=== PATIENT | female | born 1955 | race Caucasian/White ===

== ENCOUNTER 2024-10-16 17:17 | Inpatient (IN) | payer MEDICARE, OTHER, SELFPAY ==
[2024-10-16] VITALS (15 sets, daily range): BP systolic 86–138; BP diastolic 63–101; BMI 24.3; BMI 24.5
[2024-10-16 13:07] LABS: Hematocrit 43.0 % (37.0-47.0); Hemoglobin 14.8 g/dL (12.0-16.0); Mean Corp Hgb Conc. 34.4 g/dL (33.0-37.0); Mean Corpuscular Volume 84.0 fL (81.0-99.0); Nucleated Red Blood Cells % 0 %; Platelet Count 325 10^3/uL (130-400); Red Cell Dist. Width 13.2 % (11.5-14.5)
[2024-10-16 13:29] LABS: ALT (SGPT) 49 U/L (0-35); AST (SGOT) 43 U/L (14-36); Albumin 4.2 g/dl (3.5-5.0); Alkaline Phosphatase 160 U/L (38-126); Blood Urea Nitrogen 23 mg/dl (7-17); Calcium 10.0 mg/dl (8.4-10.2); Carbon Dioxide 25 mmol/L (22-30); Chloride 99 mmol/L (98-107); Glucose 128 mg/dl (70-99); Lipase 176 U/L (23-300); Potassium 4.9 mmol/L (3.5-5.1); Sodium 135 mmol/L (135-145); Total Protein 6.8 g/dl (6.3-8.2); eGFR 54.73
[2024-10-16 13:30] LABS: Urine Character Clear (Clear)
[2024-10-16 13:45] LABS: Urine Squamous Cell 16-20 /LPF (Few)
[2024-10-16] MEDS: MORPHINE SULFATE 4 MG IV (14:42)
--- NOTE | 2024-10-16 15:31 | ED.GENMED ---
History of Present Illness
General
Chief Complaint: Abdominal Symptoms
Source: patient
Time Seen by Provider: 10/16/24 13:39
History of Present Illness
History of Present Illness:
Note:
CHIEF COMPLAINT(S)
Abdominal pain.
HISTORY OF PRESENT ILLNESS
The patient is a 69-year-old female presenting to the emergency department with abdominal pain. The pain began Friday, located primarily in the upper abdomen and extending to the right upper quadrant. Although the pain has not worsened,
it has not improved either. The patient describes experiencing some nausea and occasional vomiting. There is no change in stool color, and she denies diarrhea. The patient reports a recent history of sinusitis and post-nasal drip, for which she was
prescribed doxycycline. She was also advised to obtain an ultrasound but did not recall the exact reason.
ADDITIONAL HISTORY OBTAINED FROM SOURCES OTHER THAN THE PATIENT
No additional sources were mentioned.
EXTERNAL RECORDS REVIEWED
No external records were reviewed.
CHRONIC MEDICAL CONDITIONS SIGNIFICANTLY AFFECTING CARE
The patient has a history of high cholesterol.
SOCIAL DETERMINANTS AFFECTING HEALTH
Not discussed in the conversation.
PAST MEDICAL HISTORY
High cholesterol.
PAST SURGICAL HISTORY
No abdominal surgeries noted.
REVIEW OF SYSTEMS
- Gastrointestinal: Reports upper and right upper quadrant abdominal pain, nausea, and vomiting. No changes in stool color noted. Denies diarrhea.
- Genitourinary: Denies urinary complaints such as pain or burning.
- Cardiovascular: Positive history of high cholesterol.
PHYSICAL EXAM
General: Awake, alert, and oriented to time, place, and situation.
Skin: Warm, dry.
Head: Normocephalic, atraumatic.
Neck: Supple, trachea midline.
Eyes, Ears, Nose, Mouth, and Throat: Pupils equal, round, and reactive to light. Oral mucosa moist.
Cardiovascular: Regular rhythm, no murmur.
Respiratory: Clear to auscultation without wheezes or crackles.
Gastrointestinal: Mild tenderness in the right upper quadrant, moderate tenderness in the right lower quadrant, particularly at McBurney�s point. No distension observed. Normal bowel sounds.
Musculoskeletal: No edema or cyanosis in the extremities. Normal range of motion in all examined areas.
Neurological: Alert and oriented to person, place, time, and situation.
Psychiatric: Cooperative with appropriate mood and affect.
PROBLEM LIST
Acute:
1. Abdominal pain with tenderness in the right upper and lower quadrants.
2. Elevated white blood cell count indicating possible infection.
Chronic:
1. Hypercholesterolemia.
PLAN
1. Perform a computed tomography (CT) scan of the abdomen to evaluate for potential appendicitis or gallbladder disease.
2. Administer a small dose of morphine for pain management, as agreed upon by the patient.
3. Monitor white blood cell count given its elevation in the context of abdominal pain.
DIFFERENTIAL DIAGNOSIS
The Differential Diagnosis includes, in no particular order and is not limited to:
1. Appendicitis
2. Cholecystitis
3. Biliary colic
4. Peptic ulcer disease
5. Pancreatitis
6. Gastroenteritis
7. Diverticulitis
8. Hepatitis
9. Small bowel obstruction
10. Urinary tract infection
Disposition:
SUMMARY OF ENCOUNTER
The patient, a 69-year-old female, presented to the emergency department with severe abdominal pain since Friday, localized to the upper abdomen and right upper quadrant. Laboratory tests revealed leukocytosis with a white blood cell count of
28.9k and a left shift with 86% neutrophils. Liver function tests showed slight elevations with AST at 40, ALT at 43, and alkaline phosphatase (A-LT) at 49. Imaging (likely an ultrasound, as indicated by findings) revealed pericholecystic fluid,
suggestive of acute cholecystitis. The case was discussed with general surgery and hospitalists, and the decision was made to admit the patient for treatment with intravenous antibiotics and potential surgical intervention.
DISPOSITION
Admission to the hospital for further management and likely surgical intervention.
ASSESSMENT
The patients presentation and imaging are highly suggestive of acute cholecystitis, warranting admission and surgical intervention.
EMERGENCY TREATMENTS ADMINISTERED
Intravenous antibiotics were administered.
MANAGEMENT OF THE PATIENTS CARE WAS DISCUSSED WITH
Case discussed with general surgery and hospitalists for potential surgical intervention.
INDEPENDENT REVIEW OF LABS AND INTERPRETATION OF TESTS
My independent review of the complete blood count (CBC) indicates leukocytosis with a white blood cell count of 28.9k, neutrophilic left shift at 86%, with normal hemoglobin and platelet count. My independent review of the liver function test (LFT)
shows slight elevations: AST at 40, ALT at 43, and alkaline phosphatase at 49.
My independent interpretation of imaging is significant for pericholecystic fluid, suspicious for acute cholecystitis.
DIAGNOSIS
- Acute cholecystitis (ICD-10: K81.0)
Phy Exam
Physical Exam
Physical Exam:
.
Course
Orders/Labs/Results
Orders:
Orders
10/16/24 12:50
Complete Blood Count/With Diff Urgent
Comprehensive Metabolic Panel Urgent
Lipase Urgent
10/16/24 12:56
Urinalysis Reflex To Culture Urgent
Date Specimen was Collected: 10/16/24
Time Specimen was Collected: 12:44
Urine Microscopic Reflex Cult Urgent
Urine Culture Urgent
CHAVA Source: U
Specimen Description:
Date Specimen was Collected: 10/16/24
Time Specimen was Collected: 12:44
10/16/24 14:30
Morphine Sulfate 4 mg IV NOW STA
10/16/24 14:31
CT Abd/pelvis W Iv Cont Urgent
Comment:
Reason For Exam: R sided abd pain
10/16/24 15:31
Piperacillin/Tazo 3.375 Gram [Zosyn] 3.375 gram in 50 ml IV NOW
Abnormal Lab Results
10/16/24 10/16/24
12:50 12:56
WBC 28.9 H 10^3/uL
(4.8-10.8)
Abs Immat Gran (auto) 0.2 H 10^3/uL
(0-0.05)
Absolute Neuts (auto) 25.0 H 10^3/uL
(1.4-6.5)
Absolute Monos (auto) 2.1 H 10^3/uL
(0.1-0.6)
Immature Gran % 0.8 H %
(0-0.5)
Neutrophils % 86.5 H %
(42.2-75.2)
Lymphocytes % 5.1 L %
(20.5-51.1)
BUN 23 H mg/dl
(7-17)
Creatinine 1.1 H mg/dL
(0.6-1.0)
Glucose 128 H mg/dl
(70-99)
Total Bilirubin 1.4 H mg/dl
(0.2-1.3)
AST 43 H U/L
(14-36)
ALT 49 H U/L
(0-35)
Alkaline Phosphatase 160 H U/L
(38-126)
Urine Ketones 1+ A
(Negative)
Ur Occult Blood Reflex 4+ A
(Negative)
Urine Urobilinogen 2+ A
(Neg - 1+)
Leukocyte Esterase Rfl 3+ A
(Negative)
Urine RBC 3-6 A /HPF
(0-2)
Urine WBC (Reflex) 11-15 A /HPF
(0-5)
Urine Bacteria (Reflex) Few A
(Negative)
Urine Albumin (Reflex) 3+ A
(Neg - Trace)
10/16/24 12:50
10/16/24 12:50
Vital Signs
Initial and Last Documented VS:
Initial Vital Signs
Temp Pulse Resp BP Pulse Ox
98.8 F 116 16 138/79 98
10/16/24 12:40 10/16/24 12:40 10/16/24 12:40 10/16/24 12:40 10/16/24 12:40
Last Documented Vital Signs
Temp Pulse Resp BP Pulse Ox
98.8 F 116 16 137/75 98
10/16/24 12:40 10/16/24 12:40 10/16/24 12:40 10/16/24 14:46 10/16/24 15:31
*Pulse Oximetry
SaO2: 98
Oxygen Mode of Delivery: Room air
Patient hypoxic: no
*Critical Care Note
Total Time (30-74mins, 75-104mins- exclusive of procedures): Not Applicable
ED Attending Note
-
Portions of this chart may have been created with voice recognition software.� Occasional wrong word or��sound alike� substitutions may have occurred due to the inherent limitations of voice recognition software.
Discharge Plan
Departure
Patient Disposition: Admit
Date of Disposition: 10/16/24
Time of Disposition: 15:34
Admit to: Med/Surg
Presentation/result/management discussed w/ accepting MD/DO: Hospitalist
Discharge Problem:
Acute cholecystitis
Referrals:
Gildardo Navarro MD [Family Provider, Internal Medicine]
Interventions
Interventions:
*Risk Screen - Suicide Last Done: 10/16/24 12:40
*General Assessment Last Done: 10/16/24 15:14
*Neglect/Abuse Screening Last Done: 10/16/24 12:40
*ED- Fall Risk Assessment Last Done: 10/16/24 15:14
*ED COVID-19 Vaccine History Last Done: 10/16/24 15:14
OD-Xscbre-Rgouaxqjrp Assessment Last Done: 10/16/24 14:44
Discharge Date and Time
Print Language: CANADIAN
[2024-10-16] MEDS: ZOSYN 50 IV ×2 (15:45→21:41)
[2024-10-16] MEDS: DILAUDID 1 MG IV (15:46)
--- NOTE | 2024-10-16 16:11 | HPS.HSE ---
Family Physician
-
Family Physician: Gildardo Navarro
Chief Complaint
-
Abdominal pain
History of Present Illness
Patient is a 69-year-old woman with past medical history significant for HLD, who presents emergency department secondary to severe upper abdominal pain extending to into the right upper quadrant. The pain began Friday afternoon and has been
persistent. It was associated with nausea and vomiting. She denies any diarrhea. No fevers. Laboratory tests revealed leukocytosis with a white blood cell count of 28.9k and a left shift with 86% neutrophils. Liver function tests showed slight
elevations with AST at 40, ALT at 43, and alkaline phosphatase (A-LT) at 49.
ED treatment
IV Zosyn, IV morphine, IV Dilaudid
Medical History
Past Medical History
Past Medical History: Reports Hypercholesterolemia
Past Surgical History: Reports None
Social History
Tobacco: Non-smoker
Alcohol: Occasional
Drug: None
Personal:
Living: With Family
Family History
Family History: Cancer (colon -sister)
Allergies / Home Medications
Allergies reflects when Allergies were last updated in [employer].
Home Medications with original date entered in [employer]
Allergy/Medication List:
Allergies
Allergy/AdvReac Type Severity Reaction Status Date / Time
ibuprofen (From Advil) Allergy Unknown Verified 10/16/24 12:43
Sulfa (Sulfonamide Allergy Unknown Verified 10/16/24 12:43
Antibiotics)
Home Medications
acetaminophen 500 mg tablet 1,000 mg PO Q6HPRN PRN mild pain 10/16/24
doxycycline hyclate 100 mg capsule 100 mg PO BID 10/16/24
esomeprazole magnesium 20 mg capsule,delayed release (Nexium) 20 mg PO DAILY 10/16/24
fluticasone propionate 50 mcg/actuation nasal spray,suspension 1 spray intranasal R DAILYPRN PRN allergies 10/16/24
rosuvastatin 10 mg tablet 10 mg PO HS 10/16/24
Review of Systems
-
A 12 point ROS was completed and negative except as noted: Yes
Physical Exam
Vital Signs
Vital Signs
Temp Pulse Resp BP Pulse Ox
98.8 F 116 16 127/71 99
10/16/24 12:40 10/16/24 12:40 10/16/24 12:40 10/16/24 15:52 10/16/24 15:52
Physical Exam
General: Well Developed, Well Nourished, No Apparent Distress and Conversant
HEENT: NormoCephalic, Anicteric and Moist mucous membranes
Respiratory: Clear
Cardiac: S1/S2 and Regular Rhythm
GI: Tender (RUQ abdominal tenderness, voluntary guarding, soft)
Musculoskeletal: No Clubbing, No Cyanosis and No Edema
Skin: Warm and Dry
Neuro: No Motor Deficits and Nonfocal/grossly intact
Psych: Calm
Laboratory Results
-
10/16/24 12:50
10/16/24 12:50
Laboratory Results
Lactic Acid Cancelled 10/16/24 14:08
Total Bilirubin 1.4 mg/dl (0.2-1.3) H 10/16/24 12:50
AST 43 U/L (14-36) H 10/16/24 12:50
ALT 49 U/L (0-35) H 10/16/24 12:50
Alkaline Phosphatase 160 U/L (38-126) H 10/16/24 12:50
Lipase 176 U/L (23-300) 10/16/24 12:50
Data Reviewed
-
Ultrasound: Report Reviewed by me (Acute calculous cholecystitis with a 3 cm calculus in the gallbladder neck, gallbladder distention, diffuse gallbladder wall thickening, and right upper quadrant inflammatory fat stranding.)
Impression/Plan
-
IMPRESSION:
#Acute cholecystitis, severely inflamed gallbladder with
-calculous cholecystitis with a 3 cm calculus in the gallbladder neck, gallbladder distention, diffuse gallbladder wall thickening, and right upper quadrant inflammatory fat stranding.
-Surg Cx
-IVF, NPO, IV Zosyn
-IR consultation for percutaneous cholecystostomy tube- NPO until then, will await surgery recs re: diet
-discussing options with Surgery re: surgical options vs drain placement
#HLD
-hold home oral meds for now
DVT proph- SCDs
Full Code
PLAN:
--- NOTE | 2024-10-16 16:25 | CON.GS ---
Consultation
-
Date/Time Consultation Performed: 10/16/24 1625
Medical History
-
Chief Complaint: RUQ pain
History of Present Illness:
69 yo female with a h/o hld who presents with 4 days of RUQ and epigastric pain with nausea and vomiting who presents through the ED for evaluation as her pain has only increased. She denies fevers or chills. She denies bowel or bladder changes. She
is markedly tender on exam to the RUQ and epigastrium despite receiving IV Dilaudid.
Past Medical History
Past Medical History: GERD and Hypercholesterolemia
Past Surgical History: None
Social History
Tobacco: Non-Smoker
Alcohol: None
Family History
Family History: Reviewed & Not Pertinent
Allergies / Home Medications
Allergy/AdvReac Type Severity Reaction Status Date / Time
ibuprofen (From Advil) Allergy Unknown Verified 10/16/24 12:43
Sulfa (Sulfonamide Allergy Unknown Verified 10/16/24 12:43
Antibiotics)
�Medication �Instructions �Recorded �Confirmed �Type
acetaminophen 500 mg tablet 1,000 mg PO Q6HPRN PRN mild pain 10/16/24 10/16/24 History
doxycycline hyclate 100 mg capsule 100 mg PO BID 10/16/24 10/16/24 History
esomeprazole magnesium 20 mg 20 mg PO DAILY 10/16/24 10/16/24 History
capsule,delayed release (Nexium)
fluticasone propionate 50 1 spray intranasal R DAILYPRN PRN 10/16/24 10/16/24 History
mcg/actuation nasal allergies
spray,suspension
rosuvastatin 10 mg tablet 10 mg PO HS 10/16/24 10/16/24 History
Review of Systems
-
History Source: Patient and Family
All other systems: Negative unless noted
A 10 point review of systems was completed, and was negative except as per HPI.
Physical Exam
Vital Signs
Temp Pulse Resp BP Pulse Ox
98.8 F 116 16 127/71 99
10/16/24 12:40 10/16/24 12:40 10/16/24 12:40 10/16/24 15:52 10/16/24 15:52
10/15/24 10/16/24 10/17/24
06:59 06:59 06:59
Actual Weight 62.142 kg
Body Mass Index (BMI) 24.3
Lab Results
10/16/24 12:50
10/16/24 12:50
WBC 28.9 10^3/uL (4.8-10.8) H 10/16/24 12:50
Hgb 14.8 g/dL (12.0-16.0) 10/16/24 12:50
Hct 43.0 % (37.0-47.0) 10/16/24 12:50
Plt Count 325 10^3/uL (130-400) 10/16/24 12:50
Abs Immat Gran (auto) 0.2 10^3/uL (0-0.05) H 10/16/24 12:50
Neutrophils % 86.5 % (42.2-75.2) H 10/16/24 12:50
Physical Exam
General: Well Developed and Well Nourished
HEENT: Moist Mucous Membranes
Respiratory: Non Labored Respirations
GI: Soft, Non Distended and Tender (markedly to RUQ/epigastrium)
Skin: Warm
Neuro: Awake, Alert and AO x 3
Psych: Calm
Assessment / Plan
-
69 yo female presenting with RUQ/epigastric pain with n/v x4 days. Severe acute calculous cholecystitis noted on CT imaging with significant pericholecystic edema. Impacted stone in gallbladder neck. Afebrile, mild tachycardia. BP stable. Markedly
elevated WBC of 28.9. Mild ZULEIKA, suspect secondary to dehydration given duration of GI symptoms. Given severity of cholecystitis on imaging, would recommend placement of cholecystostomy tube at this time to temporize her infection. Surgery at this
juncture would likely lead to complications and higher risk of injury to surrounding structures.
Plan:
Keep NPO
Zosyn initiated in ED, would continue
Analgesics/antiemetics
Discussed with interventional radiologist, will plan percutaneous cholecystostomy tube. Discussed with patient who is agreeable to proceeding
--- NOTE | 2024-10-16 18:20 | PTCARENOTE ---
pt. arrived to unit via stretcher from ED, pt. ambulated to bed with out assistance. Pt. reports 09/14 pulling RUQ abd pain, refused pain medications at this time.
--- NOTE | 2024-10-16 18:37 | PTCARENOTE ---
IR called for report. Pt. taken to IR via stretcher. Pt. at bedside.
[2024-10-16 18:58] LABS: INR 1.17; PT 15.2 Sec (11.4-14.6)
--- NOTE | 2024-10-16 20:06 | W.PN.UPDATE ---
Update Note
Progress Note Update
Percutaneous cholecystostomy placed, yielding 50 cc of grossly purulent fluid, sent for C+S. Cystic duct is obstructed.
[2024-10-16] MEDS: DILAUDID 0.5 MG IV (20:12)
[2024-10-16] MEDS: NSS 1000 IV (20:57)
--- NOTE | 2024-10-16 23:46 | PTCARENOTE ---
2030 pt returned to 409-1 from IR via stretcher. pt ambulated to bed without difficulty. pain 05/17. IVF from IR infusing. at bedside
[2024-10-17] MEDS: DILAUDID 0.5 MG IV (00:24)
[2024-10-17 03:32] VITALS: BP 113/64
[2024-10-17] MEDS: ZOSYN 50 IV ×4 (03:39→21:00)
[2024-10-17] MEDS: NSS 1000 IV (03:39)
[2024-10-17] MEDS: ROXICODONE 5 MG PO ×4 (05:53→19:18)
[2024-10-17 06:50] LABS: Hematocrit 36.0 % (37.0-47.0); Hemoglobin 12.5 g/dL (12.0-16.0); Mean Corp Hgb Conc. 34.7 g/dL (33.0-37.0); Mean Corpuscular Volume 83.5 fL (81.0-99.0); Nucleated Red Blood Cells % 0 %; Platelet Count 313 10^3/uL (130-400); Red Cell Dist. Width 12.9 % (11.5-14.5)
[2024-10-17 07:10] VITALS: BP 108/60
[2024-10-17 07:12] LABS: ALT (SGPT) 52 U/L (0-35); AST (SGOT) 38 U/L (14-36); Albumin 3.4 g/dl (3.5-5.0); Alkaline Phosphatase 192 U/L (38-126); Blood Urea Nitrogen 17 mg/dl (7-17); Calcium 8.7 mg/dl (8.4-10.2); Carbon Dioxide 26 mmol/L (22-30); Chloride 105 mmol/L (98-107); Estimated Creatinine Clearance 56 ml/min; Glucose 108 mg/dl (70-99); Magnesium 2.4 mg/dl (1.6-2.3); Potassium 4.2 mmol/L (3.5-5.1); Sodium 137 mmol/L (135-145); Total Protein 5.7 g/dl (6.3-8.2); eGFR > 60.00
--- NOTE | 2024-10-17 07:52 | W.PN.HOSP.TC ---
Today's Communication/Plan
-
see plan
Assessment / Plan
Assessment / Plan
Gen: NAD, awake and alert
Eyes: EOMI, PERRLA, no scleral icterus.
Neck: supple.
CV: RRR, +S1/S2, no m/r/g.
Resp: CTAB, no rales, wheezes, or rhonchi.
Abd: +BS, soft, diffuse tenderness to palpation, greatest in the right upper quadrant, ND
Skin: No rashes.
Neuro: CN 2-12 intact, non-focal.
Psych: Normal mood and affect.
CT A/P: Acute calculous cholecystitis with a 3 cm calculus in the gallbladder neck, gallbladder distention, diffuse gallbladder wall thickening, and right upper quadrant inflammatory fat stranding.
Sepsis (POA) due to acute calculus cholecystitis:
-s/p perc marcela 10/16/24PM
-surgery following
-cont Zosyn
-clears
-pain control
HLD:
-holding statin for now
-resume once LFTs improve
d/c tele
Patient's updated at bedside
FULL/SCDs + Lovenox
Anticipated Discharge: 24 - 48 hours
Subjective/Interval History
-
Date of Service: October 17, 2024
Abdominal pain is improved since percutaneous cholecystostomy tube is in place but it is not resolved.
Objective Data
-
Labs:
Laboratory Results
10/17/24
06:27
WBC 14.6 H
Hgb 12.5
Hct 36.0 L
Plt Count 313
Sodium 137
Potassium 4.2
Chloride 105
Carbon Dioxide 26
BUN 17
Creatinine 0.8
Glucose 108 H
Calcium 8.7
Total Bilirubin 1.3
AST 38 H
ALT 52 H
Alkaline Phosphatase 192 H
Vital Signs:
Vital Signs
Temp Pulse Resp BP Pulse Ox
98.8 F 94 16 113/64 95
10/17/24 03:32 10/17/24 03:32 10/17/24 03:32 10/17/24 03:32 10/17/24 03:32
I&O
10/16/24 10/17/24 10/18/24
06:59 06:59 06:59
Intake Total 1500 / 1500
Output Total 85 / 85
Balance 1415 / 1415
--- NOTE | 2024-10-17 10:28 | W.PN.GS2 ---
Today's Communication / Plan
-
continue IR drain, continue IV abx
clears, adat
Assessment / Plan
-
69 yo female presenting with RUQ/epigastric pain with n/v x4 days. Severe acute calculous cholecystitis noted on CT imaging with significant pericholecystic edema. Impacted stone in gallbladder neck.
PPD #1 IR drainage, cystic drain obstructed on IR study. Initially with purulent outputs, now more bilious, cx pending
Low grade fevers overnight to 100.8, tachycardia resolved
Pain improving but still present
Plan:
Trial of clears. Ok to advance to LFD if tolerating without n/v/increasing pain
Continue IV ABX
Analgesics/antiemetics
Analgesics/antiemetics prn
Lovenox for VTE ppx
Subjective Data
-
Date of Service: October 17, 2024
Pt seen and examined at bedside with Dr. Pabon. Pain improving but still quite severe. Denies n/v.
Objective Data
-
Intake and Output
10/16/24 10/17/24 10/18/24
06:59 06:59 06:59
Intake Total 1500 / 1500
Output Total 85 / 85
Balance 1415 / 1415
Intake:
IV fluids (Total) 1400 / 1400
IV piggybacks 100 / 100
Output:
Drain Output (Total) 85 / 85
Right Upper Abdomen Placed in 85 / 85
IR
Other:
Number of approximated MODERATE 1
amounts of urine
How many times incontinent 1
MODERATE amount urine
Vital Signs
Temp Pulse Resp BP Pulse Ox
98.3 F 81 16 108/60 95
10/17/24 07:10 10/17/24 07:10 10/17/24 07:10 10/17/24 07:10 10/17/24 07:10
Lab Results
10/17/24 06:27
10/17/24 06:27
Calcium 8.7 mg/dl (8.4-10.2) 10/17/24 06:27
Magnesium 2.4 mg/dl (1.6-2.3) H 10/17/24 06:27
Total Bilirubin 1.3 mg/dl (0.2-1.3) 10/17/24 06:27
AST 38 U/L (14-36) H 10/17/24 06:27
ALT 52 U/L (0-35) H 10/17/24 06:27
Alkaline Phosphatase 192 U/L (38-126) H 10/17/24 06:27
Total Protein 5.7 g/dl (6.3-8.2) L 10/17/24 06:27
Albumin 3.4 g/dl (3.5-5.0) L 10/17/24 06:27
Physical Exam
-
NAD
ABD soft, tender to RUQ (improved), ND
IR cholecystostomy drain with dark bilious outputs
[2024-10-17 11:10] VITALS: BP 102/63
[2024-10-17 15:05] VITALS: BP 117/66
[2024-10-17] MEDS: LOVENOX 40 MG SC (16:45)
[2024-10-17 23:39] VITALS: BP 123/63
[2024-10-18] MEDS: ZOSYN 50 IV ×4 (03:01→21:21)
[2024-10-18 07:13] LABS: Hematocrit 34.4 % (37.0-47.0); Hemoglobin 12.0 g/dL (12.0-16.0); Mean Corp Hgb Conc. 34.9 g/dL (33.0-37.0); Mean Corpuscular Volume 84.3 fL (81.0-99.0); Platelet Count 307 10^3/uL (130-400); Red Cell Dist. Width 13.3 % (11.5-14.5)
[2024-10-18 07:43] LABS: ALT (SGPT) 32 U/L (0-35); AST (SGOT) 19 U/L (14-36); Albumin 3.2 g/dl (3.5-5.0); Alkaline Phosphatase 145 U/L (38-126); Blood Urea Nitrogen 14 mg/dl (7-17); Calcium 8.9 mg/dl (8.4-10.2); Carbon Dioxide 27 mmol/L (22-30); Chloride 101 mmol/L (98-107); Estimated Creatinine Clearance 56 ml/min; Glucose 109 mg/dl (70-99); Potassium 4.2 mmol/L (3.5-5.1); Sodium 133 mmol/L (135-145); Total Protein 5.5 g/dl (6.3-8.2); eGFR > 60.00
[2024-10-18 07:52] VITALS: BP 107/68
--- NOTE | 2024-10-18 09:19 | W.PN.GS2 ---
Today's Communication / Plan
-
If patient can:
-tolerate her low fat diet without n/v/increasing pain
-continue her oral Abx regimen for 5-6 more days
-learn how to manage drain for 6-8 weeks
She can go home in 1-2 days.
Flush drain with 10 CC's 2 x daily.
Advise patient to take a probiotic
Patient is advised that visiting nurse can be arranged for first few days home
Surgery will continue to follow to monitor BM, flatus, lab trends and drain output
F/U with Dr. Quezada in OP.
Elective Laparoscopic Cholecystectomy to prevent recurrence in 2 months
Assessment / Plan
-
69 yo female presenting with RUQ/epigastric pain with n/v x4 days. Severe acute calculous cholecystitis noted on CT imaging with significant pericholecystic edema. Impacted stone in gallbladder neck.
PPD #2 IR drainage, cystic drain obstructed on IR study. Initially with purulent outputs, now more bilious.
Plan:
Patient will be continue to be managed non-operatively.
Order 10 CC 2x daily flush of drain.
Switch to oral Abx and continue for 5-6 days
Patient will have to be on drain for 6-8 weeks, after which repeat imaging should be done to confirm eradication of infection. Patient is informed that the eventual plan is a laparoscopic cholecystectomy to prevent recurrence of bile stone attack,
but that won't happen for another 2 months or so until this infection has completely healed.
Patient is educated on tips for care and travel with her drain open.
She insists on having Dr. Epsosito fo her F/U in outpatient office
Lovenox for VTE ppx
Time Spent
Total Time Spent with Patient (in minutes): 35
Subjective Data
-
Date of Service: October 18, 2024
69 yo female presenting with RUQ/epigastric pain with n/v x4 days. Severe acute calculous cholecystitis noted on CT imaging with significant pericholecystic edema. Impacted stone in gallbladder neck.
PPD #2 IR drainage, cystic drain obstructed on IR study. Initially with purulent outputs, now more bilious, cx pending. Patients fever and tachycardia has resolved. She states that she is still in pain but its improving, rating it a 4/10. Patient
denies nausea and vomiting. She also denies any BM but has passed a little bit of gas. Patient also states that she has gotten OOB and walked for half an hour this morning. She states that she is worried that she won't be able to take her trip to
[place]. She is eager to be discharged and heal at home.
Objective Data
-
Intake and Output
10/17/24 10/18/24 10/19/24
06:59 06:59 06:59
Intake Total 1500 / 1500 1715 / 1715
Output Total 85 / 85 270 / 270
Balance 1415 / 1415 1445 / 1445
Intake:
Oral fluids 1440 / 1440
IV fluids (Total) 1400 / 1400 75 / 75
IV piggybacks 100 / 100 200 / 200
Output:
Drain Output (Total) 85 / 85 270 / 270
Right Upper Abdomen Placed in / 85 270 / 270
IR
Other:
Number of approximated MODERATE 1 2
amounts of urine
How many times incontinent 1
MODERATE amount urine
Vital Signs
Temp Pulse Resp BP Pulse Ox
98 F 74 14 107/68 97
10/18/24 07:52 10/18/24 07:52 10/18/24 07:52 10/18/24 07:52 10/18/24 07:52
Lab Results
10/18/24 06:33
10/18/24 06:33
Calcium 8.9 mg/dl (8.4-10.2) 10/18/24 06:33
Magnesium 2.4 mg/dl (1.6-2.3) H 10/17/24 06:27
Total Bilirubin 1.2 mg/dl (0.2-1.3) 10/18/24 06:33
AST 19 U/L (14-36) 10/18/24 06:33
ALT 32 U/L (0-35) 10/18/24 06:33
Alkaline Phosphatase 145 U/L (38-126) H 10/18/24 06:33
Total Protein 5.5 g/dl (6.3-8.2) L 10/18/24 06:33
Albumin 3.2 g/dl (3.5-5.0) L 10/18/24 06:33
AFVSS
Labs: WNL
Physical Exam
-
General: NAD
AAAOx3
Chest: No labored breathing
Abdomen: Distention and TTP around RLQ where the drain site is located. Drain site is not inflamed or infected. Drain is putting out more bilious fluid.
Patient has a delgado catheter: No
Patient has a central line: No
--- NOTE | 2024-10-18 12:28 | W.PN.HOSP.TC ---
Today's Communication/Plan
-
Cont abx
Adv diet
F/u cultures
Assessment / Plan
Assessment / Plan
Gen: NAD, awake and alert
Eyes: EOMI, PERRLA, no scleral icterus.
Neck: supple.
CV: RRR, +S1/S2, no m/r/g.
Resp: CTAB, no rales, wheezes, or rhonchi.
Abd: +BS, soft, diffuse tenderness to palpation, greatest in the right upper quadrant, ND
Skin: No rashes.
Neuro: CN 2-12 intact, non-focal.
Psych: Normal mood and affect.
CT A/P: Acute calculous cholecystitis with a 3 cm calculus in the gallbladder neck, gallbladder distention, diffuse gallbladder wall thickening, and right upper quadrant inflammatory fat stranding.
Sepsis (POA) due to acute calculus cholecystitis:
Transaminitis
-s/p perc marcela 10/16/24PM
-surgery following
-cont Zosyn; most likely can go on augmentin - awaiting final cultures, prelim E-Coli
-Adv to LRD
-pain control
Hyponatremia
-monitor
HLD:
-holding statin for now
d/c tele
Patient's updated at bedside
FULL/SCDs + Lovenox
Anticipated Discharge: 24 - 48 hours
Subjective/Interval History
-
Date of Service: October 18, 2024
Tolerating liquid diet, advancing; HARRY drain with good output
Objective Data
-
Labs:
Laboratory Results
10/18/24
06:33
WBC 10.5
Hgb 12.0
Hct 34.4 L
Plt Count 307
Sodium 133 L
Potassium 4.2
Chloride 101
Carbon Dioxide 27
BUN 14
Creatinine 0.8
Glucose 109 H
Calcium 8.9
Total Bilirubin 1.2
AST 19
ALT 32
Alkaline Phosphatase 145 H
Vital Signs:
Vital Signs
Temp Pulse Resp BP Pulse Ox
98 F 74 14 107/68 97
10/18/24 07:52 10/18/24 07:52 10/18/24 07:52 10/18/24 07:52 10/18/24 09:50
I&O
10/17/24 10/18/24 10/19/24
06:59 06:59 06:59
Intake Total 1500 / 1500 1715 / 1715
Output Total 85 / 85 270 / 270
Balance 1415 / 1415 1445 / 1445
Review of Systems
-
History Source: Patient
All other systems: Not reviewed unless documented
Data Reviewed
-
CT Scan: Report Reviewed by me
Labs: Labs Reviewed by me
[2024-10-18] MEDS: ROXICODONE 5 MG PO ×2 (14:56→19:41)
[2024-10-18 15:25] VITALS: BP 109/61
--- NOTE | 2024-10-18 16:54 | CM ---
Met with patient to obtain information for assessment. Patient stated that she lives with her spouse in a two story home with two steps to enter. Patient is independent with all ADLs, personal care, dressing and bathing. 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 She drives and can get to all of her appointments and does all of her own shopping. She has no DME. No VN. Never been to a SNF.
Patient has a prescription plan and uses [facility] in [place] for all of her medications.
Patient's PCP is Gildardo Navarro.
Plan: Case management will continue to follow and assist with discharge planning. Patient will return home with spouse.
[2024-10-18] MEDS: LOVENOX 40 MG SC (16:59)
[2024-10-18 23:43] VITALS: BP 109/62
[2024-10-19] MEDS: ZOSYN 50 IV ×4 (03:15→21:05)
[2024-10-19 07:05] LABS: Hematocrit 35.7 % (37.0-47.0); Hemoglobin 12.3 g/dL (12.0-16.0); Mean Corp Hgb Conc. 34.5 g/dL (33.0-37.0); Mean Corpuscular Volume 83.6 fL (81.0-99.0); Nucleated Red Blood Cells % 0 %; Platelet Count 361 10^3/uL (130-400); Red Cell Dist. Width 13.2 % (11.5-14.5)
[2024-10-19 07:25] VITALS: BP 102/63
[2024-10-19] MEDS: ROXICODONE 5 MG PO ×2 (10:35→16:51)
--- NOTE | 2024-10-19 11:19 | W.PN.HOSP.TC ---
Today's Communication/Plan
-
Augmentin for 7 more days
Drain care
Follow-up surgery outpatient
Follow-up CBC, CMP outpatient
Hold statin until cleared by PCP
Assessment / Plan
Assessment / Plan
Gen: NAD, awake and alert
Eyes: EOMI, PERRLA, no scleral icterus.
Neck: supple.
CV: RRR, +S1/S2, no m/r/g.
Resp: CTAB, no rales, wheezes, or rhonchi.
Abd: +BS, soft, diffuse tenderness to palpation, greatest in the right upper quadrant, ND
Skin: No rashes.
Neuro: CN 2-12 intact, non-focal.
Psych: Normal mood and affect.
CT A/P: Acute calculous cholecystitis with a 3 cm calculus in the gallbladder neck, gallbladder distention, diffuse gallbladder wall thickening, and right upper quadrant inflammatory fat stranding.
Sepsis (POA) due to acute calculus cholecystitis:
Transaminitis
-s/p perc marcela 7/12/25PM
-surgery following
-cont Zosyn; prelim E-Coli; will discharge on Augmentin for 7 more days.
-Adv to low-fat diet, continue
-pain control
�Trach care
� Follow-up surgery outpatient for elective laparoscopic cholecystectomy
Hyponatremia
-monitor
�Follow BMP
HLD:
-holding statin for now, follow-up primary care patient
d/c tele
Patient's updated at bedside
FULL/SCDs + Lovenox
More than 30 minutes spent in discharge including
Final examination of the patient
Summarizing hospital stay
Instructions for continuing care to all relevant caregivers
Preparation of discharge records, prescriptions, and referral forms
Total time spent (in minutes): 36
Anticipated Discharge: Today
Subjective/Interval History
-
Date of Service: October 19, 2024
no acute events overnight
Objective Data
-
Labs:
Laboratory Results
10/19/24 10/19/24
06:43 11:15
WBC 9.7
Hgb 12.3
Hct 35.7 L
Plt Count 361
Sodium Pending
Potassium Pending
Chloride Pending
Carbon Dioxide Pending
BUN Pending
Creatinine Pending
Glucose Pending
Calcium Pending
Total Bilirubin Pending
AST Pending
ALT Pending
Alkaline Phosphatase Pending
Vital Signs:
Vital Signs
Temp Pulse Resp BP Pulse Ox
97.3 F 68 18 102/63 97
10/19/24 07:25 10/19/24 07:25 10/19/24 07:25 10/19/24 07:25 10/19/24 08:20
I&O
10/18/24 10/19/24 10/20/24
06:59 06:59 06:59
Intake Total 1715 / 1715 1930 / 1930
Output Total 270 / 270 150 / 150
Balance 1445 / 1445 1780 / 1780
Review of Systems
-
History Source: Patient
All other systems: Not reviewed unless documented
Data Reviewed
-
CT Scan: Report Reviewed by me
Labs: Labs Reviewed by me
--- NOTE | 2024-10-19 11:23 | W.DS.TRANS ---
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
-
Discharge Instructions:
Discharge Diagnosis/Procedures Sepsis (POA) due to acute calculus cholecystitis
:
Transaminitis
Diet Low Fat,As tolerated
Activity No strenuous activity
Additional Activity Avoid dislodging your tube, if it becomes
dislodged this is an emergency: come to the ER
or call your surgeon right away to discuss
Bathing Restrictions OK to Shower
Blood Work cbc aqnd cmp in 1 week with pcp
Other Services VN
Wound Care See drain care handout. You will need to flush
your drain daily.
Instructions:
Stand-Alone Forms:
Changes to Home Medications: Yes
Discharge Medications:
DC Medications w/original date entered in [employer]
acetaminophen 500 mg tablet 1,000 mg PO Q6HPRN PRN mild pain 10/16/24
esomeprazole magnesium 20 mg capsule,delayed release (Nexium) 20 mg PO DAILY Gastrointestinal Issue 10/16/24
fluticasone propionate 50 mcg/actuation nasal spray,suspension 1 spray intranasal R DAILYPRN PRN allergies 10/16/24
rosuvastatin 10 mg tablet 10 mg PO HS High Cholesterol 10/16/24
Held on 10/19/24. Instructions: Resume on 10/27/24. unclear clear by PCP
sodium chloride 0.9 % (flush) (Normal Saline Flush 0.9 % injection syringe) 10 ml intra-catheter DAILY #450 mL 10/17/24
amoxicillin 875 mg-potassium clavulanate 125 mg tablet 1 tab PO Q12H 7 days #14 tabs 10/19/24
oxycodone 5 mg tablet 5 mg PO Q4HPRN PRN moderate pain #18 tabs 10/19/24
Home Medication Changes
rosuvastatin 10 mg tablet 10 mg PO HS High Cholesterol 10/16/24
Held on 10/19/24. Instructions: Resume on 10/27/24. unclear clear by PCP
sodium chloride 0.9 % (flush) (Normal Saline Flush 0.9 % injection syringe) 10 ml intra-catheter DAILY #450 mL 10/17/24
amoxicillin 875 mg-potassium clavulanate 125 mg tablet 1 tab PO Q12H 7 days #14 tabs 10/19/24
oxycodone 5 mg tablet 5 mg PO Q4HPRN PRN moderate pain #18 tabs 10/19/24
Pending Results: No
[2024-10-19 12:08] LABS: ALT (SGPT) 28 U/L (0-35); AST (SGOT) 19 U/L (14-36); Albumin 3.3 g/dl (3.5-5.0); Alkaline Phosphatase 224 U/L (38-126); Blood Urea Nitrogen 14 mg/dl (7-17); Calcium 8.8 mg/dl (8.4-10.2); Carbon Dioxide 29 mmol/L (22-30); Chloride 102 mmol/L (98-107); Estimated Creatinine Clearance 74 ml/min; Glucose 114 mg/dl (70-99); Potassium 3.9 mmol/L (3.5-5.1); Sodium 137 mmol/L (135-145); Total Protein 5.6 g/dl (6.3-8.2); eGFR > 60.00
[2024-10-19 13:00] VITALS: BP 101/52
[2024-10-19 15:15] VITALS: BP 120/75
[2024-10-19] MEDS: LOVENOX 40 MG SC (16:51)
[2024-10-19 23:30] VITALS: BP 106/55
[2024-10-20] MEDS: ZOSYN 50 IV ×4 (03:29→21:03)
[2024-10-20 07:23] VITALS: BP 132/80
[2024-10-20] MEDS: ROXICODONE 5 MG PO ×4 (08:22→21:05)
[2024-10-20 08:27] LABS: Hematocrit 37.0 % (37.0-47.0); Hemoglobin 13.0 g/dL (12.0-16.0); Mean Corp Hgb Conc. 35.1 g/dL (33.0-37.0); Mean Corpuscular Volume 83.1 fL (81.0-99.0); Platelet Count 456 10^3/uL (130-400); Red Cell Dist. Width 13.1 % (11.5-14.5)
--- NOTE | 2024-10-20 12:12 | W.PN.HOSP.TC ---
Addendum entered and electronically signed by Wesley Menard MD 10/20/24 15:46:
White count continues to trend up�ensure numbers are improving prior to discharge. If lactate continues to trend up tomorrow, or if any hemodynamic changes plan is for CT abdomen pelvis
Original Note:
Today's Communication/Plan
-
Augmentin for 10 more days
Drain care
Follow-up surgery outpatient
Follow-up CBC, CMP outpatient
Hold statin until cleared by PCP
Assessment / Plan
Assessment / Plan
Gen: NAD, awake and alert
Eyes: EOMI, PERRLA, no scleral icterus.
Neck: supple.
CV: RRR, +S1/S2, no m/r/g.
Resp: CTAB, no rales, wheezes, or rhonchi.
Abd: +BS, soft, drain in place, minimal output
Skin: No rashes.
Neuro: CN 2-12 intact, non-focal.
Psych: Normal mood and affect.
CT A/P: Acute calculous cholecystitis with a 3 cm calculus in the gallbladder neck, gallbladder distention, diffuse gallbladder wall thickening, and right upper quadrant inflammatory fat stranding.
Sepsis (POA) due to acute calculus cholecystitis:
Transaminitis
-s/p perc marcela 10/16/24PM
-surgery following
-cont Zosyn; wound culture growing E. coli, Klebsiella pneumoniae and Enterococcus Faecium; Can dc on Augmentin for additional 10 days
-Adv to low-fat diet, continue
-pain control
�Drain care
� Follow-up surgery outpatient for elective laparoscopic cholecystectomy
Hyponatremia
-monitor
�Follow BMP
HLD:
-holding statin for now, follow-up primary care patient
d/c tele
Patient's updated at bedside
FULL/SCDs + Lovenox
More than 30 minutes spent in discharge including
Final examination of the patient
Summarizing hospital stay
Instructions for continuing care to all relevant caregivers
Preparation of discharge records, prescriptions, and referral forms
Total time spent (in minutes): 36
Anticipated Discharge: Today
Subjective/Interval History
-
Date of Service: October 20, 2024
drain output decreasing
Objective Data
-
Labs:
Laboratory Results
10/20/24 10/20/24
07:52 12:08
WBC 11.4 H Pending
Hgb 13.0 Pending
Hct 37.0 Pending
Plt Count 456 H D Pending
Vital Signs:
Vital Signs
Temp Pulse Resp BP Pulse Ox
97.9 F 80 16 132/80 98
10/20/24 07:23 10/20/24 07:23 10/20/24 07:23 10/20/24 07:23 10/20/24 08:20
I&O
10/19/24 10/20/24 10/21/24
06:59 06:59 06:59
Intake Total 1930 / 1930 1590 / 1590
Output Total 150 / 150 150 / 150
Balance 1780 / 1780 1440 / 1440
Review of Systems
-
History Source: Patient
All other systems: Not reviewed unless documented
Data Reviewed
-
CT Scan: Report Reviewed by me
Labs: Labs Reviewed by me
--- NOTE | 2024-10-20 12:18 | W.DS.TRANS ---
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
-
Discharge Instructions:
Discharge Diagnosis/Procedures Sepsis (POA) due to acute calculus cholecystitis
Transaminitis
Diet Low Fat,As tolerated
Activity No strenuous activity
Additional Activity Avoid dislodging your tube, if it becomes
dislodged this is an emergency: come to the ER
or call your surgeon right away to discuss
Bathing Restrictions OK to Shower
Blood Work cbc aqnd cmp in 1 week with pcp
Other Services VN
Wound Care See drain care handout. You will need to flush
your drain daily.
Instructions:
Stand-Alone Forms:
Changes to Home Medications: Yes
Discharge Medications:
DC Medications w/original date entered in [employer]
acetaminophen 500 mg tablet 1,000 mg PO Q6HPRN PRN mild pain 10/16/24
esomeprazole magnesium 20 mg capsule,delayed release (Nexium) 20 mg PO DAILY Gastrointestinal Issue 10/16/24
fluticasone propionate 50 mcg/actuation nasal spray,suspension 1 spray intranasal R DAILYPRN PRN allergies 10/16/24
rosuvastatin 10 mg tablet 10 mg PO HS High Cholesterol 10/16/24
Held on 10/19/24. Instructions: Resume on 10/27/24. unclear clear by PCP
sodium chloride 0.9 % (flush) (Normal Saline Flush 0.9 % injection syringe) 10 ml intra-catheter DAILY #450 mL 10/17/24
oxycodone 5 mg tablet 5 mg PO Q4HPRN PRN moderate pain #18 tabs 10/19/24
amoxicillin 875 mg-potassium clavulanate 125 mg tablet 1 tab PO Q12H 10 days #20 tabs 10/20/24
Home Medication Changes
rosuvastatin 10 mg tablet 10 mg PO HS High Cholesterol 10/16/24
Held on 10/19/24. Instructions: Resume on 10/27/24. unclear clear by PCP
sodium chloride 0.9 % (flush) (Normal Saline Flush 0.9 % injection syringe) 10 ml intra-catheter DAILY #450 mL 10/17/24
oxycodone 5 mg tablet 5 mg PO Q4HPRN PRN moderate pain #18 tabs 10/19/24
amoxicillin 875 mg-potassium clavulanate 125 mg tablet 1 tab PO Q12H 10 days #20 tabs 10/20/24
Pending Results: No
--- NOTE | 2024-10-20 12:28 | CM ---
Spoke with RN who stated that patient is scheduled to get bloodwork drawn later today. Pending labs patient may be discharged.
Plan: Case management will continue to follow and assist with discharge planning. Patient will return home.
[2024-10-20 12:35] LABS: Hematocrit 37.0 % (37.0-47.0); Hemoglobin 12.6 g/dL (12.0-16.0); Mean Corp Hgb Conc. 34.1 g/dL (33.0-37.0); Mean Corpuscular Volume 84.9 fL (81.0-99.0); Platelet Count 437 10^3/uL (130-400); Red Cell Dist. Width 13.0 % (11.5-14.5)
[2024-10-20 12:59] LABS: AST (SGOT) 30 U/L (14-36); Albumin 3.4 g/dl (3.5-5.0); Alkaline Phosphatase 252 U/L (38-126); Blood Urea Nitrogen 15 mg/dl (7-17); Calcium 8.9 mg/dl (8.4-10.2); Carbon Dioxide 33 mmol/L (22-30); Chloride 103 mmol/L (98-107); Estimated Creatinine Clearance 74 ml/min; Glucose 149 mg/dl (70-99); Potassium 4.8 mmol/L (3.5-5.1); Sodium 137 mmol/L (135-145); Total Protein 5.8 g/dl (6.3-8.2); eGFR > 60.00
[2024-10-20 13:26] LABS: ALT (SGPT) 38 U/L (0-35)
[2024-10-20 15:56] VITALS: BP 102/72
[2024-10-20] MEDS: LOVENOX 40 MG SC (17:03)
[2024-10-20 23:40] VITALS: BP 119/70
[2024-10-21] MEDS: ZOSYN 50 IV ×2 (04:00→10:00)
[2024-10-21 07:16] VITALS: BP 109/65
[2024-10-21 07:59] LABS: Hematocrit 35.2 % (37.0-47.0); Hemoglobin 12.2 g/dL (12.0-16.0); Mean Corp Hgb Conc. 34.7 g/dL (33.0-37.0); Mean Corpuscular Volume 84.4 fL (81.0-99.0); Platelet Count 470 10^3/uL (130-400); Red Cell Dist. Width 13.2 % (11.5-14.5)
[2024-10-21 08:24] LABS: ALT (SGPT) 43 U/L (0-35); AST (SGOT) 37 U/L (14-36); Albumin 3.4 g/dl (3.5-5.0); Alkaline Phosphatase 223 U/L (38-126); Blood Urea Nitrogen 13 mg/dl (7-17); Calcium 8.7 mg/dl (8.4-10.2); Carbon Dioxide 26 mmol/L (22-30); Chloride 103 mmol/L (98-107); Estimated Creatinine Clearance 64 ml/min; Glucose 136 mg/dl (70-99); Potassium 4.6 mmol/L (3.5-5.1); Sodium 137 mmol/L (135-145); Total Protein 5.7 g/dl (6.3-8.2); eGFR > 60.00
--- NOTE | 2024-10-21 12:08 | W.PN.HOSP.TC ---
Addendum entered and electronically signed by Wesley Menard MD 10/21/24 15:45:
[id number]
Original Note:
Today's Communication/Plan
-
abx
drain care
cbc and cmp in 3-5 days
f/u surgery as advised, pcp within 1 week
Assessment / Plan
Assessment / Plan
Gen: NAD, awake and alert
Eyes: EOMI, PERRLA, no scleral icterus.
Neck: supple.
CV: RRR, +S1/S2, no m/r/g.
Resp: CTAB, no rales, wheezes, or rhonchi.
Abd: +BS, soft, drain in place, minimal output
Skin: No rashes.
Neuro: CN 2-12 intact, non-focal.
Psych: Normal mood and affect.
CT A/P: Acute calculous cholecystitis with a 3 cm calculus in the gallbladder neck, gallbladder distention, diffuse gallbladder wall thickening, and right upper quadrant inflammatory fat stranding.
Sepsis (POA) due to acute calculus cholecystitis:
Transaminitis
-s/p perc marcela 7/25PM
-surgery following
-cont Zosyn; wound culture growing E. coli, Klebsiella pneumoniae and Enterococcus Faecium; Can dc on Augmentin for additional 10 days
-Adv to low-fat diet, continue
-WIth increase LFTS and WBC - ordered CT A/P - Satisfactory positioning of the cholecystostomy tube. There is a large gallbladder calculus. Findings of cholecystitis have improved since the prior CT.
-pain control
�Drain care
� Follow-up surgery outpatient for elective laparoscopic cholecystectomy
-Stable from medical standpoint as afebrile, abdomen with no changes and non distended,
-F/u cbc, cmp outpt
Hyponatremia
-monitor
�Follow CMP outpatient
HLD:
-holding statin for now, follow-up primary care patient
d/c tele
Patient's updated at bedside
FULL/SCDs + Lovenox
More than 30 minutes spent in discharge including
Final examination of the patient
Summarizing hospital stay
Instructions for continuing care to all relevant caregivers
Preparation of discharge records, prescriptions, and referral forms
Total time spent (in minutes): 37
Anticipated Discharge: Today
Subjective/Interval History
-
Date of Service: October 21, 2024
doing well, afebrile, no acute events overnight
Objective Data
-
Labs:
Laboratory Results
10/21/24
07:21
WBC 12.2 H
Hgb 12.2
Hct 35.2 L
Plt Count 470 H
Sodium 137
Potassium 4.6
Chloride 103
Carbon Dioxide 26
BUN 13
Creatinine 0.7
Glucose 136 H
Calcium 8.7
Total Bilirubin 0.6
AST 37 H
ALT 43 H
Alkaline Phosphatase 223 H
Vital Signs:
Vital Signs
Temp Pulse Resp BP Pulse Ox
98.4 F 73 18 109/65 96
10/21/24 07:16 10/21/24 07:16 10/21/24 07:16 10/21/24 07:16 10/21/24 07:16
I&O
10/20/24 10/21/24 10/22/24
06:59 06:59 06:59
Intake Total 1600 / 1600 1090 / 1090
Output Total 150 / 150
Balance 1450 / 1450 1090 / 1090
Review of Systems
-
History Source: Patient
All other systems: Not reviewed unless documented
Data Reviewed
-
CT Scan: Report Reviewed by me
Labs: Labs Reviewed by me
[2024-10-21] MEDS: ROXICODONE 5 MG PO (12:14)
--- NOTE | 2024-10-21 12:32 | CM ---
CM reviewed chart, patient for discharge today. Patient seen bedside with , discussed VN, patient agreeable to referral to [facility]. IMM verbally reviewed, provided with copy, placed in chart. CM will continue to follow for all discharge
planning needs.
Plan; home with , referral to [facility]
[2024-10-21 12:35] VITALS: BP 115/71
--- NOTE | 2024-10-21 12:36 | W.DS.TRANS ---
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
-
Discharge Instructions:
Discharge Diagnosis/Procedures Sepsis (POA) due to acute calculus cholecystitis
Transaminitis
Diet Low Fat,As tolerated
Activity No strenuous activity
Additional Activity Avoid dislodging your tube, if it becomes
dislodged this is an emergency: come to the ER
or call your surgeon right away to discuss
Bathing Restrictions OK to Shower
Blood Work cbc and cmp in 3-5 days with pcp
Other Services VN
Wound Care See drain care handout. You will need to flush
your drain daily.
Instructions:
Stand-Alone Forms:
Changes to Home Medications: Yes
Discharge Medications:
DC Medications w/original date entered in [employer]
acetaminophen 500 mg tablet 1,000 mg PO Q6HPRN PRN mild pain 10/16/24
esomeprazole magnesium 20 mg capsule,delayed release (Nexium) 20 mg PO DAILY Gastrointestinal Issue 10/16/24
fluticasone propionate 50 mcg/actuation nasal spray,suspension 1 spray intranasal R DAILYPRN PRN allergies 10/16/24
rosuvastatin 10 mg tablet 10 mg PO HS High Cholesterol 10/16/24
Held on 10/19/24. Instructions: Resume on 10/27/24. unclear clear by PCP
sodium chloride 0.9 % (flush) (Normal Saline Flush 0.9 % injection syringe) 10 ml intra-catheter DAILY #450 mL 10/17/24
oxycodone 5 mg tablet 5 mg PO Q4HPRN PRN moderate pain #18 tabs 10/19/24
amoxicillin 875 mg-potassium clavulanate 125 mg tablet 1 tab PO Q12H 10 days #20 tabs 10/20/24
Home Medication Changes
oxycodone 5 mg tablet 5 mg PO Q4HPRN PRN moderate pain #18 tabs 10/19/24
amoxicillin 875 mg-potassium clavulanate 125 mg tablet 1 tab PO Q12H 10 days #20 tabs 10/20/24
Pending Results: No
== END 2024-10-21 13:42 | disposition home health service (06) | DRG 872 ==
LOC: 4 EAST ACU 17:17
PROVIDERS: Emergency Medicine; Radiology Vascular & Interventional Radiology; Registered Nurse; ADMITTING PHYSICIAN Internal Medicine; ATTENDING PHYSICIAN Internal Medicine; EMERGENCY PHYSICIAN Emergency Medicine; FAMILY PHYSICIAN Internal Medicine; OTHER PHYSICIAN Surgery
PROC: 0F9430Z Drainage of Gallbladder with Drainage Device, Percutaneous Approach (ICD-10-PCS; 2024-10-16)
DX: A41.9 Sepsis, unspecified organism (principal); K80.00 Calculus of gallbladder with acute cholecystitis without obstruction; B96.20 Unspecified Escherichia coli [E. coli] as the cause of diseases classified elsewhere; E78.00 Pure hypercholesterolemia, unspecified; K21.9 Gastro-esophageal reflux disease without esophagitis; Z88.2 Allergy status to sulfonamides
CPT/HCPCS: 47490; 74177; 80053; 81003; 81015; 83690; 83735; 85025; 85027; 85610; 87070; 87071; 87077; 87086; 87186; 87205; 96365; 96375; 99152; 99284; C1729; C1769; Q9967

== ENCOUNTER 2024-10-24 08:49 | Emergency (ER) | payer MEDICARE, OTHER, SELFPAY ==
[2024-10-24 09:00] VITALS: BP 124/67
[2024-10-24 11:02] VITALS: BMI 24.6
--- NOTE | 2024-10-24 11:24 | ED.GENMED ---
History of Present Illness
General
Chief Complaint: Skin Problem
Time Seen by Provider: 10/24/24 11:07
History of Present Illness
History of Present Illness:
Patient is a 69-year-old female with a history of allergy to ibuprofen and sulfa antibiotics. She presents to the emergency department with rash to her trunk. Rash started Friday and is gradually worsening. Rash is itchy and burning. She was
started on Augmentin on for cholecystitis. She had a biliary drain placed 8 days ago. States her abdominal pain is significantly improved. She has not had any fevers or vomiting. Denies history of allergy to penicillin
Phy Exam
Physical Exam
Physical Exam:
General: No acute distress
Head: NCAT
Neck, Normal in appearance, no swelling
Respiratory: No Respiratory distress
Abdomen: Abdomen is nontender. There is a biliary drain with bilious drainage.
Ext: no edema
Neuro: QUINTERO, AOx4
Psych: Normal affect
Skin: There is a coalescing papular rash to and back extending into the groin. Nikolsky negative. There is no blistering. The rash is blanchable. No mucous membrane involvement
Course
Vital Signs
Initial and Last Documented VS:
Initial Vital Signs
Temp Pulse Resp BP Pulse Ox
98.4 F 87 16 124/67 98
10/24/24 09:00 10/24/24 09:00 10/24/24 09:00 10/24/24 09:00 10/24/24 09:00
Last Documented Vital Signs
Temp Pulse Resp BP Pulse Ox
98.4 F 87 16 124/67 98
10/24/24 09:00 10/24/24 09:00 10/24/24 09:00 10/24/24 09:00 10/24/24 11:26
*Pulse Oximetry
SaO2: 98
Oxygen Mode of Delivery: Room air
Patient hypoxic: no
*Critical Care Note
Total Time (30-74mins, 75-104mins- exclusive of procedures): Not Applicable
ED Attending Note
ED Attending Note
ED Attending Note:
Suspect rash from Augmentin. No evidence of anaphylaxis. Will discontinue Augmentin and start on Cipro and Flagyl for her cholecystitis. Clinically she seems to be improving without any evidence of worsening abdominal pain or infection
-
Portions of this chart may have been created with voice recognition software.� Occasional wrong word or��sound alike� substitutions may have occurred due to the inherent limitations of voice recognition software.
Discharge Plan
Departure
Patient Disposition: Home (Routine Discharge)
Date of Disposition: 10/24/24
Time of Disposition: 11:26
Patient with high blood pressure during this ER visit?: No
Discharge Problem:
Allergic drug rash
Instructions: Penicillin Allergy Testing
Prescriptions:
New
ciprofloxacin HCl [Cipro] 500 mg tablet
500 mg PO BID Qty: 14 0RF
metronidazole 500 mg tablet
500 mg PO TID Qty: 21 0RF
No Action
acetaminophen 500 mg Tablet
1,000 mg PO Q6HPRN PRN (Reason: mild pain)
fluticasone propionate 50 mcg/actuation spray,suspension
1 spray INTRANASAL R DAILYPRN PRN (Reason: allergies)
esomeprazole magnesium [Nexium] 20 mg Capsule,Delayed Release(Dr/Ec)
20 mg PO DAILY
rosuvastatin 10 mg tablet
10 mg PO HS
sodium chloride 0.9 % (flush) [Normal Saline Flush] Syringe
10 ml intra-catheter DAILY Qty: 450 0RF
Rx Instructions:
Flush drain daily
oxycodone 5 mg Tablet
5 mg PO Q4HPRN PRN (Reason: moderate pain) Qty: 18 0RF
amoxicillin-pot clavulanate 875-125 mg tablet
1 tab PO Q12H 10 Days Qty: 20 0RF
Referrals:
Gildardo Navarro MD [Family Provider, Internal Medicine]
Activity Restrictions/Additional Instructions:
Please discontinue the Augmentin. Follow-up with an receiving room clerk for formal testing of penicillin allergy. You may take Claritin for itching and irritation from rash.
Interventions
Interventions:
*Risk Screen - Suicide Last Done: 10/24/24 09:00
*General Assessment Last Done: 10/24/24 11:02
*Neglect/Abuse Screening Last Done: 10/24/24 09:00
*ED- Fall Risk Assessment Last Done: 10/24/24 11:02
*ED COVID-19 Vaccine History Last Done: 10/24/24 11:02
*Nursing Disposition Last Done: 10/24/24 11:46
ED-Skin Assessment Last Done: 10/24/24 11:06
Discharge Date and Time
Discharge Date/Time: 10/24/24 11:47
Print Language: ETHIOPIAN
--- NOTE | 2024-10-25 11:22 | CM ---
Call from Deborah/Ryann post dc as pt is current
Update provided- dc instructions faxed to [phone] per request as pt with abx change
== END 2024-10-24 11:47 | disposition home or self-care (01) ==
LOC: EMR 08:49
PROVIDERS: EMERGENCY PHYSICIAN Emergency Medicine; FAMILY PHYSICIAN Internal Medicine
DX: L27.0 Generalized skin eruption due to drugs and medicaments taken internally (principal); Z88.6 Allergy status to analgesic agent
CPT/HCPCS: 99282

== ENCOUNTER → 2024-11-18 13:43 | Outpatient (REF) | payer MEDICARE, OTHER, SELFPAY ==
[2024-11-18 13:55] VITALS: BP 135/71; BP_SYST 83
[2024-11-18 14:15] VITALS: BP 122/70; BP_SYST 80
== END ==
LOC: RADI 13:43
PROVIDERS: ATTENDING PHYSICIAN Surgery; FAMILY PHYSICIAN Internal Medicine
DX: Z48.03 Encounter for change or removal of drains (principal); Z90.49 Acquired absence of other specified parts of digestive tract
CPT/HCPCS: 47531

== ENCOUNTER → 2024-12-03 06:31 | Outpatient (REF) | payer MEDICARE, OTHER, SELFPAY ==
[2024-12-03 09:13] LABS: Hematocrit 39.6 % (37.0-47.0); Hemoglobin 13.2 g/dL (12.0-16.0); Mean Corp Hgb Conc. 33.3 g/dL (33.0-37.0); Mean Corpuscular Volume 86.3 fL (81.0-99.0); Platelet Count 364 10^3/uL (130-400); Red Cell Dist. Width 13.9 % (11.5-14.5)
[2024-12-03 10:34] LABS: ALT (SGPT) 17 U/L (0-35); AST (SGOT) 25 U/L (14-36); Albumin 4.6 g/dl (3.5-5.0); Alkaline Phosphatase 71 U/L (38-126); Blood Urea Nitrogen 17 mg/dl (7-17); Calcium 9.5 mg/dl (8.4-10.2); Carbon Dioxide 28 mmol/L (22-30); Chloride 104 mmol/L (98-107); Glucose 90 mg/dl (70-99); Potassium 4.6 mmol/L (3.5-5.1); Sodium 140 mmol/L (135-145); Total Protein 6.6 g/dl (6.3-8.2); eGFR > 60.00
== END ==
LOC: SDSPAT 06:31
PROVIDERS: ATTENDING PHYSICIAN Surgery; FAMILY PHYSICIAN Internal Medicine
DX: Z01.818 Encounter for other preprocedural examination (principal)
CPT/HCPCS: 36415; 80053; 85027; 86850; 86900; 86901; 93005

== ENCOUNTER 2024-12-09 06:22 | Day surgery (SDC) | payer MEDICARE, OTHER, SELFPAY ==
[2024-12-03 06:38] VITALS: BMI 23.7
[2024-12-09] VITALS (16 sets, daily range): BP systolic 0–129; BP diastolic 48–71; BMI 23.7
[2024-12-09] MEDS: TYLENOL 1000 MG PO (11:50)
[2024-12-09] MEDS: NORMOSOL-R/PLASMALYTE-A 1000 IV (12:11)
--- NOTE | 2024-12-09 12:38 | W.SUR.PREOP ---
Pre-Operative Surgical Note
-
I have examined this patient prior to the performance of the scheduled procedure.
The patient's condition is unchanged from the time of the current History and
Physical and the patient is able to undergo the scheduled procedure.
--- NOTE | 2024-12-09 15:14 | W.IMMPOSTOP ---
Surgical Immed Post Op Note
-
Primary Surgeon: Kai Esposito MD
Assisting Surgeon: None
Pre-op Diagnosis: Acute cholecystitis, status post percutaneous cholecystostomy tube
Post-op Diagnosis: Same
Procedure Performed:
1. Laparoscopic cholecystectomy with cholangiogram
2. Removal of percutaneous cholecystostomy tube
Anesthesia Type: General
Specimen / Cultures: Gallbladder and contents
Estimated Blood Loss: 11 cc
Complications: None
Operative Findings: Chronically inflamed gallbladder with duodenum and colonic mesentery plastered over the anterior surface. Pus noted to be emanating from the gallbladder itself. After carefully lysing the adhesions from the duodenum and colon
down the gallbladder was elevated. We did attempt a standard cholecystectomy however the inflammation in the cystic triangle was dense and we could not identify clear planes so we elected to do a top-down cholecystectomy. The cystic duct ostium
was identified and cannulated with a cholangiocatheter and a cholangiogram was performed which demonstrated normal biliary anatomy, brisk flow of contrast into the duodenum and no filling defects. The duct was ligated with a 0 PDS Endoloop. The
right upper quadrant was copiously irrigated and suctioned until clear. Hemostasis was achieved, Surgiflo was used over the surgical field to assist with hemostasis. The stomach was briefly insufflated via the OG tube to confirm there was no
injury to the underlying duodenum. Due to the degree of inflammation and pus, a 19 Mongolian round Sunil drain was introduced through the right lateralmost port and passed across our surgical field. This was secured to the skin with a 2-0 nylon
suture.
POST OP PLAN:
Imaging: None
Labs: Routine AM
Diet: Clears
Analgesia: Tylenol 650mg q6 Maria Del Rosario, tramadol 25 mg every 6 as needed, Dilaudid 0.5mg q2h PRN
Neuro/vascular checks: Per unit protocol
AC/AP: Hold Therapeutic AC, Ok for DVT PPx
Activity: Ad Karma
Wound/Incisions/Drains: Routine, HARRY to bulb suction
Abx: Cipro Flagyl x 4 days
Dispo: RNF
--- NOTE | 2024-12-09 15:19 | OR.RPT ---
Operative Report
Operative Report
Patient Name: Min Rowland
: 1955
Date of Operation: 12/09/2024
Preoperative Diagnosis: Acute cholecystitis, presence of a cholecystostomy tube
Postoperative Diagnosis: Same
Procedure(s):
Laparoscopic Cholecystectomy with Cholangiogram
Removal of a percutaneous cholecystostomy tube
Surgeon(s):
Dr. Esposito
Apartment Rental Clerk(s):
ANA Smith
Anesthesia: General
Estimated Blood Loss: 11 cc
Urine Output: None
Drains/Lines/Implants: 19 Swedish round Sunil
Specimens:
1. Gallbladder and contents
HPI/Surgical Indications:
This is a 69-year-old female who presented to our hospital with acute calculous cholecystitis and underwent percutaneous cholecystostomy tube. Risks/Benefits/Alternatives were discussed at length, and the patient agreed to proceed with surgery for
interval cholecystectomy and removal of her percutaneous cholecystostomy tube.
Findings:
Operative Findings: Chronically inflamed gallbladder with duodenum and colonic mesentery plastered over the anterior surface. Pus noted to be emanating from the gallbladder itself. After carefully lysing the adhesions from the duodenum and colon
down the gallbladder was elevated. We did attempt a standard cholecystectomy however the inflammation in the cystic triangle was dense and we could not identify clear planes so we elected to do a top-down cholecystectomy. The cystic duct ostium
was identified and cannulated with a cholangiocatheter and a cholangiogram was performed which demonstrated normal biliary anatomy, brisk flow of contrast into the duodenum and no filling defects. The duct was ligated with a 0 PDS Endoloop. The
right upper quadrant was copiously irrigated and suctioned until clear. Hemostasis was achieved, Surgiflo was used over the surgical field to assist with hemostasis. The stomach was briefly insufflated via the OG tube to confirm there was no
injury to the underlying duodenum. Due to the degree of inflammation and pus, a 19 Swedish round Sunil drain was introduced through the right lateralmost port and passed across our surgical field. This was secured to the skin with a 2-0 nylon
suture.
Procedure Description:
The patient was brought to the Operating Room and placed in the supine position with one arm tucked. Following uneventful induction of general endotracheal anesthesia, an orogastric tube was placed. The abdomen was prepped and draped in the usual
sterile fashion. A timeout was performed confirming the procedure, consent, and that IV antibiotics were infused and sequential compression devices were confirmed to be on. The abdomen was entered using a left subcostal Veress technique which
required a single pass followed by a 5 mm right upper quadrant Optiview trocar. Pneumoperitoneum to 15 mmHg pressure was obtained without difficulty and we confirmed that no injury had occurred during our entry. The patient was positioned in
reverse Trendelenberg and rotated with the right side up slightly. Two 5 mm trocars were then placed along the right subcostal margin, followed by a 12 mm port in the epigastrium. The percutaneous cholecystostomy tube was removed. Pus was noted
to be emanating from both the skin and intra-abdominally. This fistula was taken down. There was dense adhesions from the colon and duodenum which were carefully lysed using sharp, blunt and electrocautery dissection. Eventually the gallbladder
was freed and using a grasping forceps on the fundus was retracted cephalad into the right. We began by dissecting in the triangle of Calot however the inflammation was so dense we elected to do a top-down cholecystectomy. There was some spillage
of bile but no gross spillage of stones. The patient had a single very large black gallstone which was placed off to the side. We tunneled down to the cystic duct ostium. The cystic artery was identified and ligated with ligature. The ostium was
cannulated with a cholangiocatheter on an Costa clamp and a C-arm was draped and brought into the field. An intra-operative cholangiogram was performed and was noted to have:
No filling defects in the biliary tree
No significant biliary dilation
Brisk flow of contrast into the duodenum
Normal biliary anatomy
The catheter was then removed and the cystic duct was controlled with a 0 PDS Endoloop taking care to ensure we got around the duct completely. The gallbladder and stones were then removed. A 4 x 4 that been placed earlier in the case to help mop
up any drainage was also removed. The liver bed was cauterized and the abdomen was irrigated and excellent hemostasis was assured. Surgiflo was applied over the surgical bed. We then passed a 19 Swedish round Sunil drain through the right
lateralmost port across our surgical field and secured at the skin with a 2-0 nylon suture. All remaining trocars were then removed and the pneumoperitoneum was evacuated. The 12 mm trocar site was closed using 0 PDS suture. All trocar sites were
closed at the skin level using 4-0 Monocryl followed by Dermabond. Overall, the patient tolerated the procedure well and was taken to the Recovery Room postoperatively in stable condition.
I was the attending physician and performed the procedure with assistance of the PA above. The assistance of ANA Smith was required due to the complexity of the procedure. During the procedure Terri assisted with port placement, tissue
retraction, resection, and closure of the wound. I was present for all portions of the case.
Kai Esposito MD
[2024-12-09] MEDS: DILAUDID 0.25 MG IV ×5 (15:22→17:11)
[2024-12-09] MEDS: PROTONIX IV 40 MG IV (17:16)
[2024-12-09] MEDS: NSS (PRESERVATIVE FREE) 10 ML IV (17:16)
[2024-12-09] MEDS: CIPRO 400 MG 200 IV (17:25)
--- NOTE | 2024-12-09 18:05 | PTCARENOTE ---
Pt received from the PACU via bed. Transport was w/o incident. Pt is AAOx3, HRR, sl bounding, lungs are clear, resp. easy. Pt's abd with Lap sites well approximated, no drainage noted. Pt ambulated to BR w/supervision and able to void upon arrival
to [facility]. Pt reports min. abd pain 2/10 and denies nausea at this time. Pt instructed on plan of care, pt verbalized understanding of instructions. Call meyer is within reach.
[2024-12-09] MEDS: DILAUDID 0.5 MG IV ×2 (19:52→22:49)
[2024-12-09] MEDS: TYLENOL 650 MG PO (19:56)
[2024-12-09] MEDS: LOVENOX 40 MG SC (19:57)
[2024-12-09] MEDS: FLAGYL 500 MG 100 IV (19:58)
[2024-12-09] MEDS: TYLENOL PO (20:20)
[2024-12-10] MEDS: TYLENOL 650 MG PO ×6 (00:55→20:43)
[2024-12-10] MEDS: ULTRAM 25 MG PO (01:18)
[2024-12-10] MEDS: FLAGYL 500 MG 100 IV ×3 (01:19→19:23)
[2024-12-10] MEDS: DILAUDID 0.5 MG IV ×3 (02:25→12:27)
[2024-12-10 03:05] VITALS: BP 112/66
[2024-12-10] MEDS: CIPRO 400 MG 200 IV ×2 (05:39→17:30)
[2024-12-10 07:24] LABS: Hematocrit 36.0 % (37.0-47.0); Hemoglobin 12.4 g/dL (12.0-16.0); Mean Corp Hgb Conc. 34.4 g/dL (33.0-37.0); Mean Corpuscular Volume 85.9 fL (81.0-99.0); Platelet Count 312 10^3/uL (130-400); Red Cell Dist. Width 13.4 % (11.5-14.5)
[2024-12-10 07:40] VITALS: BP 115/64
[2024-12-10 07:47] LABS: ALT (SGPT) 19 U/L (0-35); AST (SGOT) 24 U/L (14-36); Albumin 3.6 g/dl (3.5-5.0); Alkaline Phosphatase 67 U/L (38-126); Blood Urea Nitrogen 8 mg/dl (7-17); Calcium 8.7 mg/dl (8.4-10.2); Carbon Dioxide 28 mmol/L (22-30); Chloride 102 mmol/L (98-107); Estimated Creatinine Clearance 74 ml/min; Glucose 142 mg/dl (70-99); Sodium 134 mmol/L (135-145); Total Protein 5.7 g/dl (6.3-8.2); eGFR > 60.00
[2024-12-10 07:53] LABS: Potassium 4.3 mmol/L (3.5-5.1)
[2024-12-10] MEDS: ROXICODONE 7.5 MG PO (08:34)
[2024-12-10] MEDS: NSS (PRESERVATIVE FREE) IV (08:44)
[2024-12-10] MEDS: PROTONIX IV IV (08:44)
--- NOTE | 2024-12-10 08:55 | W.PN.GS2 ---
Today's Communication / Plan
-
advance diet
analgesics
Assessment / Plan
-
69 yo female with h/o cholecystitis and perc marcela drain placed for management 10/16/24 presenting for surgery
POD #1 lap marcela with IOC and removal of perc marclea chronic inflammation with pus emanating from gallbladder noted intraop with HARRY left in place
AFVSS
Tolerating clears
HARRY with nonpurulent SSF
Notes tramadol ineffective, does take oxycodone 7.5mg to 10mg at home for back pain although infrequently
Plan:
Continue abx with cipro/flagly anticipate 4 day course
Continue with HARRY drain, anticipate removal prior to discharge if remains nonpurulent/nonbilious
Advance diet
Change tramadol to Oxycodone 7.5mg q6h prn, continue nonnarcotic analgesics
Stop IVF
Lovenox for VTE ppx
PPI for GI ppx
Tentative d/c tomorrow pending pain management and PO tolerance
Time Spent
Total Time Spent with Patient (in minutes): 35
Subjective Data
-
Date of Service: December 10, 2024
Pt seen and examined at bedside with Dr. Esposito. Denies n/v. Ultram ineffective at relieving pain overnight, has been using dilaudid. Not yet passing flatus.
Objective Data
-
Intake and Output
12/09/24 12/10/24 12/11/24
06:59 06:59 06:59
Intake Total 0 / 1820
Output Total
Balance 1735 / 1735
Intake:
Oral fluids 120 / 120
IV fluids (Total) 1100 / 1100
normosol 500 / 500
IV piggybacks 600 / 600
Output:
Drain Output (Total)
Right Abdomen Chip-Macdonald 85 / 85
Other:
Number of approximated MODERATE 1
amounts of urine
Number of approximated LARGE 1
amounts of urine
Vital Signs
Temp Pulse Resp BP Pulse Ox
98.2 F 69 17 115/64 97
12/10/24 07:40 12/10/24 07:40 12/10/24 07:40 12/10/24 07:40 12/10/24 07:40
Lab Results
12/10/24 06:46
12/10/24 06:46
Calcium 8.7 mg/dl (8.4-10.2) 12/10/24 06:46
Total Bilirubin 0.7 mg/dl (0.2-1.3) 12/10/24 06:46
AST 24 U/L (14-36) 12/10/24 06:46
ALT 19 U/L (0-35) 12/10/24 06:46
Alkaline Phosphatase 67 U/L (38-126) 12/10/24 06:46
Total Protein 5.7 g/dl (6.3-8.2) L 12/10/24 06:46
Albumin 3.6 g/dl (3.5-5.0) 12/10/24 06:46
Physical Exam
-
NAD
ABD soft, nd, expected incisional tenderness
Incisions well approximated, intact glue
HARRY with light ssf
--- NOTE | 2024-12-10 10:24 | CM ---
Reviewed the chart notes and spoke with the patient and spouse at the bedside. Patient resides with spouse in a two story home with two steps to enter. The patient reports no DME/VN, but has had [facility] in the past. The patient confirmed her
pharmacy of choice is [facility]. Patient currently with HARRY drain. CM continues to be available to patient/family and is monitoring medical plan for needs at discharge.
Plan: Discharge to home when medically stable. No needs if HARRY drain removed at d/c.
[2024-12-10 15:22] VITALS: BP 116/60
[2024-12-10] MEDS: ROXICODONE 10 MG PO (15:38)
[2024-12-10] MEDS: LOVENOX 40 MG SC (17:29)
[2024-12-10 23:07] VITALS: BP 120/64
[2024-12-11] MEDS: TYLENOL 650 MG PO ×2 (00:38→07:46)
[2024-12-11] MEDS: FLAGYL 500 MG 100 IV (01:51)
[2024-12-11] MEDS: TYLENOL PO (04:37)
[2024-12-11] MEDS: CIPRO 400 MG 200 IV (05:14)
[2024-12-11 06:46] LABS: Hematocrit 34.8 % (37.0-47.0); Hemoglobin 12.2 g/dL (12.0-16.0); Mean Corp Hgb Conc. 35.1 g/dL (33.0-37.0); Mean Corpuscular Volume 85.7 fL (81.0-99.0); Platelet Count 301 10^3/uL (130-400); Red Cell Dist. Width 13.6 % (11.5-14.5)
[2024-12-11 07:15] LABS: ALT (SGPT) 22 U/L (0-35); AST (SGOT) 26 U/L (14-36); Albumin 3.4 g/dl (3.5-5.0); Alkaline Phosphatase 64 U/L (38-126); Blood Urea Nitrogen 8 mg/dl (7-17); Calcium 9.0 mg/dl (8.4-10.2); Carbon Dioxide 27 mmol/L (22-30); Chloride 103 mmol/L (98-107); Estimated Creatinine Clearance 74 ml/min; Glucose 148 mg/dl (70-99); Potassium 4.1 mmol/L (3.5-5.1); Sodium 134 mmol/L (135-145); Total Protein 5.5 g/dl (6.3-8.2); eGFR > 60.00
[2024-12-11 07:30] VITALS: BP 124/69
[2024-12-11] MEDS: PROTONIX IV 40 MG IV (07:45)
[2024-12-11] MEDS: NSS (PRESERVATIVE FREE) 10 ML IV (07:45)
--- NOTE | 2024-12-11 09:23 | W.PN.GS2 ---
Today's Communication / Plan
-
dispo planning
Assessment / Plan
-
69 yo female with h/o cholecystitis and perc marcela drain placed for management 10/16/24 presenting for surgery
POD #2 lap marcela with IOC and removal of perc marcela chronic inflammation with pus emanating from gallbladder noted intraop with HARRY left in place
AFVSS
Tolerating diet
HARRY with nonpurulent SSF (removed at bedside)
Pain better controlled on current regimen
Plan:
Continue abx with cipro/flagly; transition to PO for a 4 day course
Harry removed at bedside
continue current diet
Analgesics prn
Lovenox for VTE ppx
PPI for GI ppx
dispo planning
Subjective Data
-
Date of Service: December 11, 2024
Pt seen and examined at bedside with Dr. Esposito. Denies nausea/vomiting. Still sore but pain is better today. Tolerating diet. Ambulating without difficulty.
Objective Data
-
Intake and Output
12/10/24 12/11/24 12/12/24
06:59 06:59 06:59
Intake Total 1820 / 1820 1660 / 1660
Output Total
Balance 1735 / 1735 1600 / 1600
Intake:
Oral fluids 120 / 120 1560 / 1560
IV fluids (Total) 1100 / 1100
normosol 500 / 500
IV piggybacks 600 / 600 100 / 100
Output:
Drain Output (Total) 60
Right Abdomen Chip-Macdonald
Other:
Number of approximated MODERATE 1 5
amounts of urine
Number of approximated LARGE 1
amounts of urine
Vital Signs
Temp Pulse Resp BP Pulse Ox
98.5 F 71 16 124/69 99
12/11/24 07:30 12/11/24 07:30 12/11/24 07:30 12/11/24 07:30 12/11/24 07:30
Lab Results
12/11/24 06:22
12/11/24 06:22
Calcium 9.0 mg/dl (8.4-10.2) 12/11/24 06:22
Total Bilirubin 0.6 mg/dl (0.2-1.3) 12/11/24 06:22
AST 26 U/L (14-36) 12/11/24 06:22
ALT 22 U/L (0-35) 12/11/24 06:22
Alkaline Phosphatase 64 U/L (38-126) 12/11/24 06:22
Total Protein 5.5 g/dl (6.3-8.2) L 12/11/24 06:22
Albumin 3.4 g/dl (3.5-5.0) L 12/11/24 06:22
Physical Exam
-
NAD
ABD soft, nd, expected incisional tenderness
Incisions well approximated, intact glue
HARRY with light ssf (removed)
Patient has a delgado catheter: No
Patient has a central line: No
--- NOTE | 2024-12-11 09:40 | CM ---
CM following re: discharge planning.
Reviewed pt's chart, met with pt and pt's at bedside.
Discharge order noted. Both pt and her are aware, expressed their agreement. [place] [facility] [place].
No after care VN needs identified.
D/C plan: home no needs. to transport.
== END 2024-12-11 09:50 | disposition home or self-care (01) ==
LOC: SDS 06:22
PROVIDERS: ATTENDING PHYSICIAN Surgery; FAMILY PHYSICIAN Internal Medicine
DX: K80.01 Calculus of gallbladder with acute cholecystitis with obstruction (principal); Z45.89 Encounter for adjustment and management of other implanted devices; K66.0 Peritoneal adhesions (postprocedural) (postinfection); K82.3 Fistula of gallbladder
CPT/HCPCS: 47563; 74300; 76000; 80053; 85027; 86900; 86901; 88304; A4300